=== PATIENT | male | born 1985 | race Hispanic/Latino ===

== ENCOUNTER 2017-07-26 19:32 | Emergency (ER) | payer OTHER ==
[2017-07-26] MEDS ORDERED: Ziprasidone 20 MG VIAL ONE (19:55)
== END 2017-07-26 20:15 ==
LOC: NAV ERS 19:32
DX: S60.522A Blister (nonthermal) of left hand, initial encounter (principal); S60.521A Blister (nonthermal) of right hand, initial encounter; F29 Unspecified psychosis not due to a substance or known physiological condition; F20.9 Schizophrenia, unspecified; Z79.899 Other long term (current) drug therapy; X58.XXXA Exposure to other specified factors, initial encounter
CPT/HCPCS: 96372; J3486